=== PATIENT | female | born 2000 | race African-American/Black ===

== ENCOUNTER 2022-09-13 04:12 | Inpatient (IN) ==
[2022-09-13] MEDS ORDERED: TRANEXAMIC ACID 1,000 MG in SODIUM CHLORIDE 0.9% 100 ML IV PRN (04:55)
[2022-09-13] MEDS ORDERED: miSOPROStoL 200 MCG TABLET RECTAL PRN (04:55)
[2022-09-13] MEDS ORDERED: BUTORPHANOL 2 MG/ML VIAL IV PRN (04:55)
[2022-09-13] MEDS ORDERED: CARBOPROST TROMETHAMINE 250 MCG/ML AMP IM PRN (04:55)
[2022-09-13] MEDS ORDERED: OXYTOCIN/LR 20 UNIT/1,000 ML BAG IV ONE ×2 (04:55→19:39)
[2022-09-13] MEDS ORDERED: METHYLERGONOVINE 0.2 MG/1 ML AMP IM PRN (04:55)
[2022-09-13] MEDS ORDERED: ONDANSETRON 4 MG/2 ML VIAL IV PRN (04:55)
[2022-09-13] MEDS ORDERED: MEPERIDINE 50 MG/1 ML VIAL IV PRN (04:55)
[2022-09-13] MEDS ORDERED: OXYTOCIN/LR 20 UNIT/1,000 ML BAG IV SCH (05:30)
[2022-09-13] MEDS: LACTATED RINGERS 1,000 ML IV SCH ×2 (05:34→12:58)
[2022-09-13 05:41] LABS: Basophils % 0.3 % (0.0-0.8); Eosinophils # 0.1 10*3/uL (0.0-0.87); Eosinophils % 1.4 % (0.00-10.9); Hematocrit 35.7 VOL% (35.7-47.0); Hemoglobin 11.8 GM/DL (12.0-16.0); Immature Granulocytes % 0.4 %; Immature Granulocytes Absolute 0.03 #; Lymphocytes # 2.4 10*3/uL (1.4-4.0); Lymphocytes % 33.1 % (21.3-54.2); Mean Corpuscular HGB Conc 33.1 GM/DL (32-36); Mean Corpuscular Volume 82.8 FL (87-102); Mean Platelet Volume 11.7 FL (9.6-12.0); Monocytes # 0.7 10*3/uL (0.11-0.8); Monocytes % 9.8 % (1.7-12.7); Platelet Count 176 T/CUMM (130-400); Red Blood Count 4.31 MC/CUMM (3.8-5.5); Red Cell Distribution Width 15.1 % (9.3-17.3); White Blood Count 7.3 T/CUMM (4-12)
[2022-09-13 06:11] LABS: Alanine Aminotransferase 19 U/L (13-56); Alkaline Phosphatase 131 U/L (45-117); Aspartate Amino Transferase 19 U/L (0-37); Bilirubin,Total < 0.39 MG/DL (0.20-1.00); Blood Urea Nitrogen 13 MG/DL (7-18); Calcium 9.5 MG/DL (8.5-10.1); Carbon Dioxide 21 MMOL/L (21-32); Chloride 108 MMOL/L (98-107); Glucose 90 MG/DL (74-106); Osmolality,Calculated 274.7 MOS/KG (273-304); Potassium 4.1 MMOL/L (3.5-5.1); Sodium 138 MMOL/L (136-145); Total Protein 7.3 G/DL (6.4-8.2)
[2022-09-13] MEDS ORDERED: OXYTOCIN/LR 0 UNIT/0 ML BAG IV ONE (15:18)
[2022-09-13] MEDS ORDERED: TRANEXAMIC ACID 1,000 MG/10 ML VIAL ONE (15:18)
[2022-09-13] MEDS ORDERED: miSOPROStoL 200 MCG TABLET ONE (15:18)
[2022-09-13] MEDS ORDERED: SODIUM CHLORIDE 0.9% 0 ML IV ONE (15:18)
[2022-09-13] MEDS ORDERED: CARBOPROST TROMETHAMINE 250 MCG/ML AMP IM ONE (15:19)
[2022-09-13] MEDS ORDERED: METHYLERGONOVINE 0.2 MG/1 ML AMP ONE (15:19)
[2022-09-13 17:46] LABS: Cord Venous Blood HCO3 22.5 MMOL/L; Cord Venous Blood PCO2 38.8 MMHG; Cord Venous Blood PO2 41.9
[2022-09-13] MEDS ORDERED: HYDROCORTISONE 2.5% RECTAL CREAM 30 GM TUBE TOP PRN (19:39)
[2022-09-13] MEDS ORDERED: oxyCODONE/ACETAMINOPHEN 5-325 MG TABLET PO PRN ×2 (19:39)
[2022-09-13] MEDS ORDERED: BENZOCAINE 20%/MENTHOL 0.5% SPRAY 56 GM CAN TOP PRN (19:39)
[2022-09-13] MEDS ORDERED: LANOLIN 50% CREAM 0.3 OZ TUBE TOP PRN (19:39)
[2022-09-13] MEDS ORDERED: ACETAMINOPHEN 325 MG TABLET PO PRN (19:39)
[2022-09-13] MEDS ORDERED: IBUPROFEN 800 MG TABLET PO PRN (19:39)
[2022-09-13] MEDS ORDERED: RHO(D) IMMUNE GLOBULIN 300 MCG SYRINGE IM ONE (19:39)
[2022-09-13] MEDS ORDERED: WITCH HAZEL PADS 100/JAR TOP PRN (19:39)
[2022-09-13] MEDS ORDERED: BISACODYL 10 MG SUPP RECTAL PRN (19:39)
[2022-09-13] MEDS ORDERED: DIPH/TET/ACEL PERT BOOSTER VACCINE 0.5 ML VIAL IM ONE (19:39)
[2022-09-13] MEDS ORDERED: MEASLES/MUMPS/RUBELLA VACCINE 0.5 ML VIAL SUBCUT ONE (19:39)
[2022-09-13] MEDS: DOCUSATE SODIUM 100 MG CAPSULE PO SCH (20:22)
[2022-09-14] MEDS ORDERED: FLUTICASONE 50 MCG NASAL SPRAY 16 GM BOTTLE BOTH NARES PRN (05:13)
[2022-09-14 05:35] LABS: Basophils % 0.3 % (0.0-0.8); Eosinophils # 0.1 10*3/uL (0.0-0.87); Eosinophils % 0.4 % (0.00-10.9); Hematocrit 35.3 VOL% (35.7-47.0); Hemoglobin 11.5 GM/DL (12.0-16.0); Immature Granulocytes % 0.5 %; Immature Granulocytes Absolute 0.07 #; Lymphocytes # 2.5 10*3/uL (1.4-4.0); Lymphocytes % 18.5 % (21.3-54.2); Mean Corpuscular HGB Conc 32.6 GM/DL (32-36); Mean Platelet Volume 10.5 FL (9.6-12.0); Monocytes % 7.4 % (1.7-12.7); Neutrophils % 72.9 % (38.7-73.9); Platelet Count 160 T/CUMM (130-400); Red Cell Distribution Width 15.1 % (9.3-17.3); White Blood Count 13.7 T/CUMM (4-12)
[2022-09-14] MEDS ORDERED: AZITHROMYCIN 250 MG TABLET PO ONE (06:00)
[2022-09-14] MEDS: DOCUSATE SODIUM 100 MG CAPSULE PO SCH ×2 (08:41→21:05)
[2022-09-14] MEDS: methylPREDNISolone 4 MG TABLET PO SCH ×4 (08:42→21:05)
[2022-09-15] MEDS: DOCUSATE SODIUM 100 MG CAPSULE PO SCH (08:49)
[2022-09-15] MEDS: methylPREDNISolone 4 MG TABLET PO SCH (08:49)
[2022-09-15 08:56] VITALS: BP 113/74
== END 2022-09-15 11:20 | disposition home or self-care (01) | DRG 560 ==
LOC: N.LD 04:12 → N.OB 21:37
PROVIDERS: ADMIT Obstetrics & Gynecology; ATTEND Obstetrics & Gynecology